=== PATIENT | male | born 2000 | race Caucasian/White ===

== ENCOUNTER 2021-08-19 08:12 | Emergency (ER) | payer BC ==
[~2021-08-19] VITALS: Ht 182.9 cm; Wt 61.2 kg
[2021-08-19 08:30] VITALS: BP_SYST 146
[2021-08-19] MEDS ORDERED: LIDOCAINE MPF 1% 50 MG/5 ML AMP INJ ONE (12:45)
[2021-08-19] MEDS ORDERED: LIDOCAINE 1%, 20 ML MDV 20 ML ONE (12:54)
[2021-08-19] MEDS ORDERED: SULF1TAB48 PO ×2 (13:46)
[2021-08-19] MEDS ORDERED: AMOX500C2 PO (13:51)
[2021-08-19] MEDS ORDERED: AMOXICILLIN 500 MG CAPSULE PO ONE (14:00)
[2021-08-19 14:30] VITALS: BP_SYST 128
== END 2021-08-19 14:30 | disposition home or self-care (01) ==
LOC: SED 08:12
DX: S56.422A Laceration of extensor muscle, fascia and tendon of left index finger at forearm level, initial encounter (principal); Z79.899 Other long term (current) drug therapy; W26.0XXA Contact with knife, initial encounter; Y93.89 Activity, other specified; Y92.89 Other specified places as the place of occurrence of the external cause; Y99.8 Other external cause status
CPT/HCPCS: 12001; 73140; 99283; J2001 ×2